=== PATIENT | female | born 1965 | race Two or more races ===

== ENCOUNTER 2016-08-03 03:15 | Emergency (ER) | payer MEDICAID ==
[~2016-08-03] VITALS: Ht 167.6 cm; Wt 90.7 kg
[2016-08-03] MEDS ORDERED: ALBUTEROL FS 2.5 MG/3 ML VIAL.NEB ONE (03:22)
[2016-08-03] MEDS ORDERED: ALBUTEROL FS 2.5 MG/0.5 ML VIAL.NEB NEB ONE (03:30)
[2016-08-03 04:10] VITALS: BP 167/77
== END 2016-08-03 04:00 | disposition home or self-care (01) ==
LOC: ER 03:16
DX: J98.01 Acute bronchospasm (principal); I10 Essential (primary) hypertension; J45.909 Unspecified asthma, uncomplicated
CPT/HCPCS: 71010-TC; A4606; Z7610